=== PATIENT | male | born 1990 | race Caucasian/White ===

== ENCOUNTER 2016-06-04 13:44 | Inpatient (IN) | payer BC ==
[~2016-06-04] VITALS: Ht 203.2 cm; Wt 172.0 kg
[~2016-06-04 13:44] MED LIST: FLONASE16 G1 BOTH NARES; NO HOME MEDS; OMEPRAZOLE40 M1 PO; PERCOCET 5/31 TABLET PO
[2016-06-04 16:05] LABS: HEMATOCRIT 27.5 % (38.0-50.0); MCH 16.9 PG (29.0-34.0); MCHC 26.5 G/DL (30.0-36.0); MCV 63.7 FL (86-99); RBC DIS.WIDTH-CV 18.9 % (11.8-14.6); RBC DIS.WIDTH-SD 42.4 % (39-53); RED BLOOD COUNT 4.32 M/uL (4.00-5.50); WHITE BLOOD COUNT 9.6 K/uL (4.1-10.2)
[2016-06-04 16:09] LABS: CHLORIDE 108 mEq/L (99-109); POTASSIUM 4.3 mEq/L (3.7-5.4); SODIUM 141 mEq/L (136-147)
[2016-06-04 16:11] LABS: GLUCOSE 92 mg/dL (70-99)
[2016-06-04 16:12] LABS: ANION GAP 7 MEQ/L (2-14)
[2016-06-04 16:14] LABS: GFR ESTIMATE (CALCULATED) > 59 mL/min/
[2016-06-04 16:15] LABS: UREA NITROGEN (BUN) 16 mg/dL (9-23)
[2016-06-04 16:47] LABS: PLATELET COUNT 264 K/uL (156-360)
[2016-06-04 17:45] LABS: TOTAL BILIRUBIN 0.2 mg/dL (0.0-1.0)
[2016-06-04 17:46] LABS: ALKALINE PHOSPHATASE 51 IU/L (3-129)
[2016-06-04 17:49] LABS: DIRECT BILIRUBIN 0.1 mg/dL (0.0-0.3)
[2016-06-04 17:50] LABS: LIPASE 20 U/L (1.0-51.0)
[2016-06-04 20:46] VITALS: BP 115/68
[2016-06-04 21:03] VITALS: BP 123/65
[2016-06-04] MEDS ORDERED: TYLENOL EXTRA500 MG PO (21:07)
[2016-06-04 21:56] VITALS: BP 116/68
[2016-06-04 22:52] VITALS: BP 128/57
[2016-06-04 23:42] VITALS: BP 128/57
[2016-06-05] VITALS (11 sets, daily range): BP systolic 114–130; BP diastolic 57–83
[2016-06-05 01:19] LABS: HEMATOCRIT 25.4 % (38.0-50.0); MCV 65.3 FL (86-99)
[2016-06-05 08:16] LABS: INTER. NORMALIZED RATIO 1.1; PROTHROMBIN TIME 11.4 (9.2-11.2)
[2016-06-05 08:31] LABS: ALKALINE PHOSPHATASE 40 IU/L (3-129); ANION GAP 5 MEQ/L (2-14); CHLORIDE 107 MEQ/L (99-109); GFR ESTIMATE (CALCULATED) > 59 mL/min/; GLUCOSE 81 mg/dL (70-99); HEMATOCRIT 28.4 % (38.0-50.0); MCH 18.5 PG (29.0-34.0); MCHC 27.5 G/DL (30.0-36.0); MCV 67.5 FL (86-99); RBC DIS.WIDTH-CV 21.5 % (11.8-14.6); RBC DIS.WIDTH-SD 52.7 % (39-53); RED BLOOD COUNT 4.21 M/uL (4.00-5.50); SAMPLE HEMOLYSIS CHECK 1; SAMPLE ICTERIC CHECK 0; SAMPLE LIPEMIA CHECK 0; SODIUM 140 MEQ/L (136-147); UREA NITROGEN (BUN) 13 mg/dL (9-23)
[2016-06-05 08:39] LABS: POTASSIUM 4.4 MEQ/L (3.7-5.4); TOTAL BILIRUBIN 0.5 MG/DL (0.0-1.0); WHITE BLOOD COUNT 6.4 K/uL (4.1-10.2)
[2016-06-05 09:18] LABS: PLATELET COUNT 175 K/uL (156-360)
[2016-06-05 09:35] LABS: TROP-I INTERPRETATION NEGATIVE; TROPONIN-I < 0.01 ng/mL (0.0-0.30)
[2016-06-05 10:40] LABS: IRON 21 MCG/DL (35-150)
[2016-06-05 10:48] LABS: FERRITIN 2 NG/ML (22-322)
[2016-06-05 15:20] LABS: ANISOCYTOSIS 2+; EOSINOPHIL (%) 5.1 % (0-5); EOSINOPHIL COUNT 0.4 K/uL (0-0.3); GIANT PLATELETS OCC; HEMATOCRIT 28.8 % (38.0-50.0); IMMATURE GRANULOCYTE (%) 0.1 % (0.0-0.7); LYMPHOCYTE COUNT 1.7 K/uL (1.0-2.8); MCH 18.5 PG (29.0-34.0); MCHC 27.4 G/DL (30.0-36.0); MCV 67.3 FL (86-99); MICROCYTOSIS 1+; MONOCYTE (%) 7.2 % (3-12); MONOCYTE COUNT 0.5 K/uL (0-0.8); NEUTROPHIL (%) 64.5 % (45-76); NEUTROPHIL COUNT 4.8 K/uL (1.8-6.4); OVALOCYTES OCC; PLAT.SUFFICIENCY ADEQUATE; PLATELET COUNT 195 K/uL (156-360); RBC DIS.WIDTH-CV 21.5 % (11.8-14.6); RBC DIS.WIDTH-SD 51.6 % (39-53); RED BLOOD COUNT 4.28 M/uL (4.00-5.50); USER ID VLB; WHITE BLOOD COUNT 7.5 K/uL (4.1-10.2)
[2016-06-05] MEDS ORDERED: IRON325 MG PO (16:12)
[2016-06-05] MEDS ORDERED: VITAMIN D31000 UNI2 PO (16:12)
== END 2016-06-05 16:36 | disposition home or self-care (01) | DRG 378 ==
LOC: EME 13:44 → RME 16:56 → EDOF 21:03 → 3EAST 21:03
PROVIDERS: Internal Medicine; Physician Assistant; Surgery
PROC: 30233N1 Transfusion of Nonautologous Red Blood Cells into Peripheral Vein, Percutaneous Approach (ICD-10-PCS; principal; 2016-06-04)
PROC: 0DJ08ZZ Inspection of Upper Intestinal Tract, Via Natural or Artificial Opening Endoscopic (ICD-10-PCS; 2016-06-05)
DX: K92.0 Hematemesis (principal); D62 Acute posthemorrhagic anemia; Z68.41 Body mass index [BMI] 40.0-44.9, adult; K92.1 Melena; Z98.84 Bariatric surgery status; E66.01 Morbid (severe) obesity due to excess calories; F17.210 Nicotine dependence, cigarettes, uncomplicated; K21.9 Gastro-esophageal reflux disease without esophagitis
CPT/HCPCS: 71010; 74176; 80048; 80053; 80076; 82306; 82607; 82728; 82746; 83540; 83690; 84484; 85014; 85018; 85025; 85027; 85610; 86850; 86900; 86901; 86920; 93005; 99281; 99285; C9113; J2250; J2270; J2405; J3010; J7030; P9016

== ENCOUNTER 2017-11-22 20:54 | Emergency (ER) | payer SELFPAY ==
[~2017-11-22] VITALS: Ht 203.2 cm; Wt 136.5 kg
[~2017-11-22 20:54] MED LIST changes: +IRON325 MG PO; +TYLENOL EXTRA500 MG PO; +VITAMIN D31000 UNI2 PO
[2017-11-22 21:41] LABS: APPEARANCE CLEAR ((CLEAR)); BILIRUBIN NEGATIVE; BLOOD NEGATIVE; COLOR YELLOW ((YELLOW)); GLUCOSE (STRIP) NEGATIVE; KETONES NEGATIVE; LEUKOCYTES NEGATIVE; NITRITE NEGATIVE; PROTEIN (STRIP) NEGATIVE; SPECIFIC GRAVITY 1.024 (1.000-1.030); UCUL ADDED? NO
[2017-11-22 21:57] LABS: HEMATOCRIT 35.4 % (38.0-50.0); HEMOGLOBIN 10.6 G/DL (12.5-16.6); MCH 22.5 PG (29.0-34.0); MCHC 29.9 G/DL (30.0-36.0); PLATELET COUNT 180 K/uL (156-360); RBC DIS.WIDTH-CV 20.7 % (11.8-14.6); RBC DIS.WIDTH-SD 55.3 % (39-53); RED BLOOD COUNT 4.72 M/uL (4.00-5.50)
[2017-11-22 22:08] LABS: ALBUMIN 3.6 g/dL (3.2-4.8)
[2017-11-22 22:09] LABS: CHLORIDE 106 mEq/L (99-109); POTASSIUM 3.8 mEq/L (3.7-5.4); SODIUM 142 mEq/L (136-147)
[2017-11-22 22:11] LABS: GLUCOSE 88 mg/dL (70-99); TOTAL PROTEIN 5.8 g/dL (6.4-8.3)
[2017-11-22 22:13] LABS: TOTAL BILIRUBIN 0.3 mg/dL (0.0-1.0)
[2017-11-22 22:14] LABS: ALKALINE PHOSPHATASE 64 IU/L (3-129)
[2017-11-22 22:15] LABS: CREATININE 0.8 mg/dL (0.6-1.3); GFR ESTIMATE (CALCULATED) > 59 mL/min/ (58.99-99999)
[2017-11-22 22:16] LABS: AST (GOT) 12 IU/L (2-34); UREA NITROGEN (BUN) 11 mg/dL (9-23)
[2017-11-22 22:18] LABS: ALT (GPT) 11 IU/L (3-49)
[2017-11-23] MEDS ORDERED: ANUSOL HC,ANUCO25 MG PR (02:53)
[2017-11-23 03:04] VITALS: BP 127/68
== END 2017-11-23 03:05 | disposition home or self-care (01) ==
LOC: EME 20:54
DX: K64.9 Unspecified hemorrhoids (principal); F17.200 Nicotine dependence, unspecified, uncomplicated; Z90.49 Acquired absence of other specified parts of digestive tract; Z98.84 Bariatric surgery status; Z88.2 Allergy status to sulfonamides
CPT/HCPCS: 72193; 80053; 81003; 85027; 99281; 99284; J1885; J3010; J7030

== ENCOUNTER 2017-12-03 12:57 | Emergency (ER) | payer SELFPAY ==
[~2017-12-03] VITALS: Ht 203.2 cm; Wt 128.9 kg
[~2017-12-03 12:57] MED LIST changes: +ANUSOL HC,ANUCO25 MG PR
[2017-12-03 14:52] LABS: HEMATOCRIT 37.6 % (38.0-50.0); HEMOGLOBIN 11.4 G/DL (12.5-16.6); MCH 22.8 PG (29.0-34.0); MCHC 30.3 G/DL (30.0-36.0); MCV 75.2 FL (86-99); RBC DIS.WIDTH-CV 21.5 % (11.8-14.6); RBC DIS.WIDTH-SD 57.1 % (39-53); WHITE BLOOD COUNT 8.8 K/uL (4.1-10.2)
[2017-12-03 15:00] LABS: CHLORIDE 106 mEq/L (99-109); POTASSIUM 4.4 mEq/L (3.7-5.4); SODIUM 140 mEq/L (136-147)
[2017-12-03 15:02] LABS: GLUCOSE 85 mg/dL (70-99)
[2017-12-03 15:06] LABS: CREATININE 0.8 mg/dL (0.6-1.3); GFR ESTIMATE (CALCULATED) > 59 mL/min/ (58.99-99999); UREA NITROGEN (BUN) 16 mg/dL (9-23)
[2017-12-03 15:40] LABS: PLATELET COUNT 226 K/uL (156-360)
[2017-12-03] MEDS ORDERED: NORCO 5/3251 TABLET PO (15:55)
[2017-12-03] MEDS ORDERED: FLAGYL500 MG PO (15:55)
[2017-12-03] MEDS ORDERED: CIPRO500 MG PO (15:55)
[2017-12-03 16:11] VITALS: BP 130/98
== END 2017-12-03 16:12 | disposition home or self-care (01) ==
LOC: EME 12:57
PROVIDERS: Physician Assistant
PROC: 0H99XZX Drainage of Perineum Skin, External Approach, Diagnostic (ICD-10-PCS; principal; 2017-12-03)
DX: K62.89 Other specified diseases of anus and rectum (principal); Z88.2 Allergy status to sulfonamides; F17.200 Nicotine dependence, unspecified, uncomplicated
CPT/HCPCS: 80048; 85027; 99281; 99283; J2270